=== PATIENT | male | born 1955 | race African-American/Black ===

== ENCOUNTER 2021-03-08 14:59 | Emergency (ER) | payer MEDICARE ==
[2021-03-08] MEDS ORDERED: Ketorolac Tromethamine 30 MG/ML VIAL ONE (15:49)
[2021-03-08] MEDS ORDERED: Cyclobenzaprine 10 MG TAB ONE (15:50)
[2021-03-08 16:44] LABS: Bilirubin Neg (Negative); Blood, Urine Negative (Negative); Clarity Clear (Clear); Glucose, Urine (Dipstick) Normal (Negative); Ketone, Urine Negative (Negative); Leukocyte Negative (Negative); Nitrite Negative (Negative); Protein, Urine (Dipstick) Negative (Neg-Trace); Urobilinogen Normal mg/dL (Less than 2)
[2021-03-08] MEDS ORDERED: Morphine 4 MG/ML VIAL ONE (17:01)
== END 2021-03-08 17:35 | disposition home or self-care (01) ==
LOC: CSHERS 14:59
DX: M54.42 Lumbago with sciatica, left side (principal); I10 Essential (primary) hypertension; E78.5 Hyperlipidemia, unspecified; E78.00 Pure hypercholesterolemia, unspecified; Z79.899 Other long term (current) drug therapy
CPT/HCPCS: 81003; 96372; 99283; J1885; J2270